=== PATIENT | female | born 1995 | race Caucasian/White ===

== ENCOUNTER 2020-02-09 08:31 | Emergency (ER) | payer OTHER, SELFPAY ==
[2020-02-09 08:41] VITALS: BP 128/89; PULSE 90; RESP 16; TEMP 36.8; O2SAT 99
--- NOTE | 2020-02-09 08:49 | ED.SKABFB ---
HPI - Skin/Abscess/Foreign Bdy General Chief complaint: Skin/Abscess/Foreign Body Stated complaint: Rash on arm History of Present Illness HPI narrative: This is a 24-year-old female that states approximately 3 days ago she started having a rash that started on the back of her ear continues down currently on her face arms, torso. Patient states it is extremely itchy she took some Benadryl that was outdated not for sure if it will work. Related Data Home Medications Medication Instructions Recorded Confirmed etonogestrel-ethinyl estradiol See Rx Instructions .ROUTE .COMPLEX 02/09/20 02/09/20 Allergies Allergy/AdvReac Type Severity Reaction Status Date / Time No Known Allergies Allergy Verified 02/09/20 08:34 Review of Systems Review of Systems: Narrative: CONSTITUTIONAL: Denies fever, chills, or sweats. EYES: Denies visual changes, redness, or discharge. ENT: Denies rhinorrhea, congestion, sore throat, or otalgia. CARDIOVASCULAR:Denies chest pain, palpitations, or edema. RESPIRATORY: Denies cough or dyspnea. GASTROINTESTINAL: Denies abdominal pain, nausea, vomiting, or diarrhea. GENITOURINARY: Denies dysuria or hematuria. SKIN: Positive rash or itching. MUSCULOSKELETAL:Denies back pain, joint pain, or myalgia. NEUROLOGIC: Denies headache, numbness, or weakness. PSYCHIATRIC:Denies anxiety or depression PMFSH Social History Social History Gender identity (if verbalized by the patient): Female Comments At time as signature, I have reviewed and agree with nursing past medical, social, surgical and family history. Please see nursing chart for further information. There is no relevant family history pertinent to the presenting complaint. Exam Narrative: Exam Narrative: GENERAL:Well-appearing, well-nourished, and in no acute distress. HEAD:Normocephalic, atraumatic. EYES: PERRLA and EOMI. ENT: Nares clear, no rhinorrhea or epistaxis. Mucous membranes moist. NECK: Supple. CHEST: Clear to auscultation. No respiratory distress. HEART: Regular rate and rhythm. No murmur heard. Normal peripheral pulses. ABDOMEN: Soft, nontender, nondistended, normal active bowel sounds. EXTREMITIES: Normal range of motion. No edema. SKIN: Warm, dry, erythematous urticaria rash bilaterally on torso, earlobes trunk circular. NEURO: No focal deficits. Alert and oriented x3. Course Vital Signs Vital signs: Vital Signs Temperature 98.3 F 02/09/20 08:41 Pulse Rate 90 02/09/20 08:41 Respiratory Rate 16 02/09/20 08:41 Blood Pressure 128/89 02/09/20 08:41 Pulse Oximetry 99 02/09/20 08:41 Temperature 98.3 F 02/09/20 08:41 Pulse Rate 90 02/09/20 08:41 Respiratory Rate 16 02/09/20 08:41 Blood Pressure 128/89 02/09/20 08:41 Pulse Oximetry 99 02/09/20 08:41 MDM - Skin/Abscess/Foreign Bdy Differential Diagnosis Differential diagnosis: Likely abscess of skin or subcutaneous tissue, viral exanthem, urticaria, allergic reaction to drug and contact dermatitis Discharge Plan Discharge Clinical Impression: Urticaria AD (atopic dermatitis) Qualifiers: Atopic dermatitis type: other Qualified Code(s): L20.89 - Other atopic dermatitis Patient Disposition: Home, Self-Care Condition: Stable Instructions: Antibiotic Form, Urticaria (ED), Allergies (ED) Prescriptions: New hydrocortisone 0.5 % cream 1 applic TOPICAL BID Qty: 28.35 RF: 2 prednisone 20 mg tablet 20 mg PO BID 5 Days Qty: 11 RF: 0 loratadine [Claritin] 10 mg tablet 10 mg PO DAILY PRN (Reason: allergy symptoms) Qty: 30 RF: 0 No Action etonogestrel-ethinyl estradiol 0.12-0.015 mg/24 hr ring See Rx Instructions .ROUTE .COMPLEX RF: 0 Follow-up/Referrals: UNKNOWN,DOCTOR [Primary Care Provider] - Time of Disposition: 08:59 Discharge Date/Time: 02/09/20 09:04
== END 2020-02-09 09:04 | disposition home or self-care (01) ==
PROVIDERS: Emergency Provider Nurse Practitioner Family
DX: L50.9 Urticaria, unspecified (principal); L20.89 Other atopic dermatitis
CPT/HCPCS: 99203; G0463

== ENCOUNTER → 2020-02-15 08:54 | Outpatient (CLI) | payer OTHER, SELFPAY ==
--- NOTE | ~2020-02-15 | US_ITS ---
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 Paternal family carries BRCA2 gene. Paternal gran dmother and maternal and paternal aunts with breast cancer. TECHNIQUE: High-resolution ultrasound imaging of both complete breasts COMPARISON: None FINDINGS: No suspicious mass or shadowing, cyst or other significant sonographic finding is noted. IMPRESSION: BI-RADS Category 1: Negative Recommendation: BRCA testing and genetic counseling should be considered. Reviewed, dictated and finalized at [facility]. Reviewed, dictated and finalized at [facility].
== END ==
PROVIDERS: Visit Provider Advanced Practice Midwife
DX: N60.19 Diffuse cystic mastopathy of unspecified breast (principal); Z80.3 Family history of malignant neoplasm of breast; N63.10 Unspecified lump in the right breast, unspecified quadrant; N63.20 Unspecified lump in the left breast, unspecified quadrant
CPT/HCPCS: 76641